=== PATIENT | male | born 1985 | race Caucasian/White ===

== ENCOUNTER 2020-11-10 02:54 | Emergency (ER) | payer OTHER ==
[~2020-11-10] VITALS: Ht 187.9 cm; Wt 101.2 kg
[2020-11-10] MEDS ORDERED: morphine INJ 10 MG/ML 1ML (SYR OR VIAL) IVP STA (03:07)
--- NOTE | 2020-11-10 03:11 | ED General ---
General Chief Complaint: Back Problems Stated Complaint: LEFT SIDE ABDOMINAL PAIN History of Present Illness Date Seen by Provider: Nov 10, 2020 Time Seen by Provider: 03:11 Initial Comments Patient presenting to the emergency department for evaluation of left flank pain that has been going off and on for the past 5 hours describes it as intense stabbing pain in the left flank that radiates towards his left lower abdomen but is not associated with any fevers chills nausea vomiting diarrhea constipation d ysuria hematuria or testicular pain or other complaints. He says he has never had similar pain before in the past. He appears comfortable but is nontoxic. Allergies and Home Medications Allergies Coded Allergies: Penicillins (Verified Allergy, Unknown, 11/10/20) Patient Home Medication List Home Medication List Reviewed: Yes Review of Systems Review of Systems Constitutional: no symptoms reported EENTM: no symptoms reported Respiratory: no symptoms reported Cardiovascular: no symptoms reported Gastrointestinal: abdominal pain Genitourinary: no symptoms reported Musculoskeletal: back pain Skin: no symptoms reported Psychiatric/Neurological: No Symptoms Reported All Other Systems Reviewed Negative Unless Noted: Yes Past Wqstcai-Ufuxxj-Rttmyj Hx Patient Social History Recent Foreign Travel: No Contact w/Someone Who Travel: No Physical Exam Vital Signs Vital Signs - First Documented 11/10/20 03:11 Temp 36.0 Pulse 80 Resp 18 B/P (MAP) 142/92 (109) Pulse Ox 97 O2 Delivery Room Air Capillary Refill : Height, Weight, BMI Height: '" Weight: lbs. oz. kg; BMI Method: General Appearance: No Apparent Distress, WD/WN HEENT: PERRL/EOMI Neck: Supple Respiratory: No Respiratory Distress Cardiovascular: Regular Rate, Rhythm Gastrointestinal: Non Tender, Soft Back: CVA Tenderness (L) Neurologic/Psychiatric: Alert, Oriented x3 Skin: Warm/Dry Progress/Results/Core Measures Suspected Sepsis SIRS Temperature: Pulse: Respiratory Rate: Laboratory Tests 11/10/20 03:07: White Blood Count 11.7H Blood Pressure / Mean: Laboratory Tests 11/10/20 03:07: Creatinine 1.40H, Platelet Count 291, Total Bilirubin 0.9 Results/Orders Lab Results Laboratory Tests Test 11/10/20 03:07 Range/Units White Blood Count 11.7 H 4.3-11.0 10^3/uL Red Blood Count 4.73 4.35-5.85 10^6/uL Hemoglobin 14.2 13.3-17.7 G/DL Hematocrit 42 40-54 % Mean Corpuscular Volume 89 80-99 FL Mean Corpuscular Hemoglobin 30 25-34 PG Mean Corpuscular Hemoglobin Concent 34 32-36 G/DL Red Cell Distribution Width 12.2 10.0-14.5 % Platelet Count 291 130-400 10^3/uL Mean Platelet Volume 8.5 7.4-10.4 FL Immature Granulocyte % (Auto) 0 % Neutrophils (%) (Auto) 78 H 42-75 % Lymphocytes (%) (Auto) 12 12-44 % Monocytes (%) (Auto) 9 0-12 % Eosinophils (%) (Auto) 1 0-10 % Basophils (%) (Auto) 0 0-10 % Neutrophils # (Auto) 9.1 H 1.8-7.8 X 10^3 Lymphocytes # (Auto) 1.4 1.0-4.0 X 10^3 Monocytes # (Auto) 1.1 H 0.0-1.0 X 10^3 Eosinophils # (Auto) 0.1 0.0-0.3 10^3/uL Basophils # (Auto) 0.0 0.0-0.1 10^3/uL Immature Granulocyte # (Auto) 0.1 0.0-0.1 10^3/uL Urine Color DARK YELLOW Urine Clarity SLIGHTLY CLOUDY Urine pH 6.0 5-9 Urine Specific Joshua >=1.030 1.016-1.022 Urine Protein 1+ H NEGATIVE Urine Glucose (UA) NEGATIVE NEGATIVE Urine Ketones NEGATIVE NEGATIVE Urine Nitrite NEGATIVE NEGATIVE Urine Bilirubin NEGATIVE NEGATIVE Urine Urobilinogen 0.2 < = 1.0 MG/DL Urine Leukocyte Esterase NEGATIVE NEGATIVE Urine RBC (Auto) 3+ H NEGATIVE Urine RBC >100 H /HPF Urine WBC 2-5 /HPF Urine Squamous Epithelial Cells 5-10 /HPF Urine Crystals NONE /LPF Urine Bacteria FEW H /HPF Urine Casts NONE /LPF Urine Mucus LARGE H /LPF Urine Culture Indicated YES Sodium Level 139 135-145 MMOL/L Potassium Level 4.3 3.6-5.0 MMOL/L Chloride Level 104 98-107 MMOL/L Carbon Dioxide Level 24 21-32 MMOL/L Anion Gap 11 5-14 MMOL/L Blood Urea Nitrogen 17 7-18 MG/DL Creatinine 1.40 H 0.60-1.30 MG/DL Estimat Glomerular Filtration Rate 57 BUN/Creatinine Ratio 12 Glucose Level 145 H 70-105 MG/DL Calcium Level 9.2 8.5-10.1 MG/DL Corrected Calcium 8.5-10.1 MG/DL Total Bilirubin 0.9 0.1-1.0 MG/DL Aspartate Amino Transf (AST/SGOT) 20 5-34 U/L Alanine Aminotransferase (ALT/SGPT) 26 0-55 U/L Alkaline Phosphatase 75 40-136 U/L Total Protein 7.1 6.4-8.2 GM/DL Albumin 4.7 H 3.2-4.5 GM/DL Lipase 29 8-78 U/L My Orders Orders - DEBO BADILLO DO Cbc With Automated Diff (11/10/20 03:07) Comprehensive Metabolic Panel (11/10/20 03:07) Lipase (11/10/20 03:07) Ua Culture If Indicated (11/10/20 03:07) Iv/Invasive Line Insertion .IV start (11/10/20 03:07) Ct Abd/Pelvis Wo(Kidney Stone) (11/10/20 03:07) Ondansetron Injection (Zofran Injectio (11/10/20 03:15) Ketorolac Injection (Toradol Injection) (11/10/20 03:15) Ns Iv 1000 Ml (Sodium Chloride 0.9%) (11/10/20 03:15) Morphine Injection (Morphine Injection (11/10/20 03:07) Urine Culture (11/10/20 03:07) Ed Iv/Invasive Line Start (11/10/20 03:25) Hydromorphone Injection (Dilaudid Inject (11/10/20 04:15) Medications Given in ED Current Medications Medications Dose Ordered Sig/Alberto Route Start Time Stop Time Status Last Admin Dose Admin Ketorolac Tromethamine 15 mg ONCE ONCE IVP 11/10/20 03:15 11/10/20 03:16 DC 11/10/20 03:22 15 MG Ondansetron HCl 4 mg ONCE ONCE IVP 11/10/20 03:15 11/10/20 03:16 DC 11/10/20 03:22 4 MG Vital Signs/I&O 11/10/20 03:11 Temp 36.0 Pulse 80 Resp 18 B/P (MAP) 142/92 (109) Pulse Ox 97 O2 Delivery Room Air Capillary Refill : Progress Note : Progress Note Patient has 1-2 mm distal left ureter calculus causing mild stranding and hydronephrosis. His pain is improved and is tolerable and I told him he can be treated as an outpatient with a trial of passage. I told her follow with urology within the next 2-3 days drink plenty of fluids and come back to the emergency Department sooner with worsening pain fevers vomiting or other general concerns. Patient aware and agreeable with plan for discharge and verbalized understanding of the need for short-term follow-up and strict ED return precautions discussed as above. Departure Impression Primary Impression: Left ureteral calculus Additional Impressions: Hydronephrosis of left kidney Leukocytosis Disposition: HOME, SELF-CARE Condition: Stable Departure-Patient Inst. Referrals: NO,LOCAL PHYSICIAN (PCP) Primary Care Physician WILMER RODRIGUEZ MD Patient Instructions: Renal Colic (DC) Scripts Ibuprofen (Ibuprofen) 800 Mg Tablet 800 MG PO Q8H PRN for PAIN, #30 TAB 0 Refills Prov: DEBO BADILLO DO 11/10/20 Ondansetron (Ondansetron Odt) 4 Mg Tab.rapdis 4 MG PO Q6H PRN for NAUSEA/VOMITING-1ST LINE, #14 TAB Prov: DEBO BADILLO DO 11/10/20 Oxycodone HCl/Acetaminophen (Percocet 5-325 mg Tablet) 1 Each Tablet 1 TAB PO Q4H for PAIN-MODERATE MDD 6 TABS for 7 Days, #14 TAB Prov: DEBO BADILLO DO 11/10/20 Tamsulosin HCl (Flomax) 0.4 Mg Cap 0.4 MG PO qhs for 7 Days, CAP Prov: DEBO BADILLO DO 11/10/20 Cephalexin (Keflex) 500 Mg Capsule 500 MG PO TID for 7 Days, CAP Prov: DEBO BADILLO DO 11/10/20 DEBO BADILLO DO Nov 10, 2020 03:11
[2020-11-10 03:15] LABS: BILIRUBIN,URINE NEGATIVE (NEGATIVE); CLARITY,URINE SLIGHTLY CLOUDY; COLOR,URINE DARK YELLOW; GLUCOSE, URINE (UA) NEGATIVE (NEGATIVE); KETONES,URINE NEGATIVE (NEGATIVE); NITRITE,URINE NEGATIVE (NEGATIVE); PROTEIN,URINE 1+ (NEGATIVE)
[2020-11-10] MEDS ORDERED: KETOROLAC 30 MG/ML VIAL IVP ONE (03:15)
[2020-11-10] MEDS ORDERED: ONDANSETRON 4 MG/2 ML (SDV) Z0FRAN IVP ONE (03:15)
[2020-11-10] MEDS ORDERED: NS IV 1000 ML 1,000 ML IV SCH (03:15)
[2020-11-10 03:16] LABS: BACTERIA,URINE FEW /HPF; LEUKOCYTE ESTERASE ,URINE NEGATIVE (NEGATIVE); RBC,URINE >100 /HPF
[2020-11-10 03:32] LABS: HEMOGLOBIN 14.2 G/DL (13.3-17.7); MEAN CORPUSCULAR HEMOGLOBIN 30 PG (25-34); WHITE BLOOD COUNT 11.7 10^3/uL (4.3-11.0)
[2020-11-10 03:33] LABS: BASOPHILS % (AUTO) 0 % (0-10); EOSINOPHILS # (AUTO) 0.1 10^3/uL (0.0-0.3); EOSINOPHILS % (AUTO) 1 % (0-10); HEMATOCRIT 42 % (40-54); LYMPHOCYTES # (AUTO) 1.4 X 10^3 (1.0-4.0); LYMPHOCYTES % (AUTO) 12 % (12-44); MEAN CORPUSCULAR HGB CONC 34 G/DL (32-36); MEAN CORPUSCULAR VOLUME 89 FL (80-99); MEAN PLATELET VOLUME 8.5 FL (7.4-10.4); MONOCYTES # (AUTO) 1.1 X 10^3 (0.0-1.0); MONOCYTES % (AUTO) 9 % (0-12); NEUTROPHILS # (AUTO) 9.1 X 10^3 (1.8-7.8); NEUTROPHILS % (AUTO) 78 % (42-75); PLATELET COUNT 291 10^3/uL (130-400)
[2020-11-10 03:54] LABS: CHLORIDE 104 MMOL/L (98-107); POTASSIUM 4.3 MMOL/L (3.6-5.0); SODIUM 139 MMOL/L (135-145)
[2020-11-10 03:55] LABS: ALANINE AMINOTRANSFERASE 26 U/L (0-55); ALBUMIN 4.7 GM/DL (3.2-4.5); ALKALINE PHOSPHATASE 75 U/L (40-136); BILIRUBIN,TOTAL 0.9 MG/DL (0.1-1.0); BUN/CREATININE RATIO 12; CALCIUM 9.2 MG/DL (8.5-10.1); CARBON DIOXIDE 24 MMOL/L (21-32); GFR ESTIMATED 57; GLUCOSE 145 MG/DL (70-105); LIPASE 29 U/L (8-78); TOTAL PROTEIN 7.1 GM/DL (6.4-8.2)
[2020-11-10] MEDS ORDERED: ONDA4TAB11 PO (04:07)
[2020-11-10] MEDS ORDERED: TMSL.4C PO (04:07)
[2020-11-10] MEDS ORDERED: IBUP-1780 PO (04:07)
[2020-11-10] MEDS ORDERED: CEPH-507 PO (04:07)
[2020-11-10] MEDS ORDERED: OXYC1TAB87 PO (04:07)
[2020-11-10 04:12] VITALS: BP 134/86
[2020-11-10] MEDS ORDERED: oxyCODONE/APAP 5/325MG (PERCOCET 5) TABLET PO ONE (04:15)
[2020-11-10] MEDS ORDERED: HYDROmorphone 2 MG/ML VIAL (DILAUDID) IVP ONE (04:15)
[2020-11-10] MEDS ORDERED: TAMSULOSIN 0.4 MG (FLOMAX) CAP PO ONE (04:15)
--- NOTE | 2020-11-10 07:37 | Diagnostic Imaging Report ---
PROCEDURE: CT urinary tract, rule out kidney stone. TECHNIQUE: Multiple contiguous axial images were obtained through the abdomen and pelvis without the use of intravenous contrast. Auto Exposure Controls were utilized during the CT exam to meet ALARA standards for radiation dose reduction. INDICATION: Left flank pain. CORRELATION STUDY: None. FINDINGS: LOWER THORAX: Clear. LIVER: Unremarkable on unenhanced imaging. GALLBLADDER: Present and unremarkable. No bile duct dilatation. SPLEEN: Unremarkable. PANCREAS: Unremarkable. ADRENAL GLANDS: Unremarkable. KIDNEYS: There is approximately 2 mm stone near the left UVJ. There is left perinephric stranding and mild left hydronephrosis. Additionally, there is some increased density in the collecting systems within the left kidney. ABDOMINAL AORTA: Unremarkable, nonaneurysmal. GASTROINTESTINAL TRACT: Stomach mildly distended with a small amount of fluid and retained gastric contents. No small bowel obstruction. Normal appendix is present. No abdominal ascites or free air. URINARY BLADDER: Decompressed. REPRODUCTIVE: Prostate gland unremarkable. OSSEOUS STRUCTURES: No acute abnormality. OTHER: None. IMPRESSION: 1. Mild left perinephric hydroureteronephrosis owing to approximately 2 mm stone at the distal left ureter near the UVJ. Resultant perinephric and ureteric stranding present. 2. There is a question slight increased density within the collecting system left kidney. This could reflect perhaps some debris or blood products. Mass is considered less likely but not excluded. Once acute symptoms have subsided, postcontrast imaging would be recommended. (Not described at preliminary interpretation.) Report was FAXED/called to [facility] by glo at 7:34am. Dictated by: Dictated on workstation # [id number]
== END 2020-11-10 04:12 | disposition home or self-care (01) ==
LOC: ER FS 03:00
DX: N13.2 Hydronephrosis with renal and ureteral calculous obstruction (principal); D72.829 Elevated white blood cell count, unspecified; Z88.0 Allergy status to penicillin
CPT/HCPCS: 36415; 74176; 80053; 81000; 83690; 85025; 87088